=== PATIENT | male | born 1955 | race Caucasian/White ===

== ENCOUNTER 2017-06-07 15:36 | Emergency (ER) | payer BC ==
[2017-06-07] MEDS: KETOROLAC 15 MG INJ IM (17:17)
[2017-06-07 17:31] LABS: ADD MAN DIFF? NO
[2017-06-07 17:36] LABS: ABNORMAL IP MESSAGE 1; BASOPHILS % 0.3 % (0.0-2.0); EOSINOPHILS # 0.1 10^3/ul (0.0-0.5); EOSINOPHILS % 0.7 % (0.0-7.0); HEMATOCRIT 39.9 % (42.0-52.0); HEMOGLOBIN 13.8 g/dl (14.0-18.0); LYMPHOCYTES # 1.6 10^3/ul (0.8-2.9); LYMPHOCYTES % 12.7 % (15.0-51.0); MEAN CORPUSCULAR HEMOGLOBIN 30.2 pg (29.0-33.0); MEAN CORPUSCULAR HGB CONC 34.6 g/dl (32.0-37.0); MEAN CORPUSCULAR VOLUME 87.3 fl (82.0-101.0); MEAN PLATELET VOLUME 10.7 fl (7.4-10.4); MONOCYTE # 1.5 10^3/ul (0.3-0.9); MONOCYTES % 11.9 % (0.0-11.0); NEUTROPHIL # 9.6 10^3/ul (1.6-7.5); NEUTROPHILS % 73.9 % (39.0-77.0); PLATELET COUNT 261 10^3/UL (140-415); POSITIVE DIFF @See below; RED BLOOD COUNT 4.57 10^6/ul (4.70-6.10); RED CELL DISTRIBUTION WIDTH 12.7 % (11.5-14.5)
[2017-06-07 17:56] LABS: ALANINE AMINOTRANSFERASE 34 IU/L (13-69); ALBUMIN/GLOBULIN RATIO 1.33; ALKALINE PHOSPHATASE 71 IU/L (42-121); ANION GAP 14 (8-16); ASPARTATE AMINO TRANSFERASE 21 IU/L (15-46); BILIRUBIN,INDIRECT 0.3 mg/dl (0-1.1); BILIRUBIN,TOTAL 0.3 mg/dl (0.2-1.3); BLOOD UREA NITROGEN 17 mg/dl (7-20); CALCIUM 9.2 mg/dl (8.4-10.2); CARBON DIOXIDE 25 mmol/L (21-31); CHLORIDE 100 mmol/L (97-110); CHOL/HDL RATIO 2.3 RATIO; CHOLESTEROL 148 mg/dl (100-200); CREATININE 0.79 mg/dl (0.61-1.24); GLUCOSE 112 mg/dl (70-220); HDL CHOLESTEROL 62 mg/dl (30-78); LDL CHOLESTEROL,CALCULATED 74 mg/dl; POTASSIUM 4.2 mmol/L (3.5-5.1); SODIUM 135 mmol/L (135-144); TRIGLYCERIDES 62 mg/dl (0-149)
== END 2017-06-07 21:13 | disposition home or self-care (01) ==
LOC: FTE 21:13
DX: M19.041 Primary osteoarthritis, right hand (principal)
CPT/HCPCS: 36415; 73130-LT; 80053; 80061; 84560; 85025; 96372; 99284-25

== ENCOUNTER 2018-02-26 22:19 | Inpatient (IN) | payer BC ==
[2018-02-26] MEDS: SOD CHLORIDE 0.9% 1,000 ML IV (23:18)
[2018-02-26] MEDS: ONDANSETRON 4 MG INJ IV (23:20)
[2018-02-26] MEDS: morphine 4 MG/ML VIAL IV (23:20)
[2018-02-26 23:24] LABS: ADD MAN DIFF? NO
[2018-02-26 23:26] LABS: WHITE BLOOD COUNT 11.8 10^3/ul (4.8-10.8)
[2018-02-26 23:26] LABS: BASOPHIL # 0.1 10^3/ul (0.0-0.1); BASOPHILS % 0.4 % (0.0-2.0); EOSINOPHILS % 0.3 % (0.0-7.0); HEMATOCRIT 35.8 % (42.0-52.0); LYMPHOCYTES # 0.9 10^3/ul (0.8-2.9); MEAN CORPUSCULAR HEMOGLOBIN 29.8 pg (29.0-33.0); MEAN CORPUSCULAR HGB CONC 33.5 g/dl (32.0-37.0); MEAN CORPUSCULAR VOLUME 88.8 fl (82.0-101.0); MEAN PLATELET VOLUME 9.4 fl (7.4-10.4); MONOCYTE # 0.7 10^3/ul (0.3-0.9); MONOCYTES % 5.7 % (0.0-11.0); NEUTROPHILS % 84.3 % (39.0-77.0); PLATELET COUNT 545 10^3/UL (140-415); RED BLOOD COUNT 4.03 10^6/ul (4.70-6.10)
[2018-02-26 23:43] LABS: ALANINE AMINOTRANSFERASE 31 IU/L (13-69); ALBUMIN 3.7 g/dl (3.3-4.9); ALBUMIN/GLOBULIN RATIO 1.02; ALKALINE PHOSPHATASE 77 IU/L (42-121); AMYLASE 55 U/L (11-123); ANION GAP 14 (8-16); ASPARTATE AMINO TRANSFERASE 35 IU/L (15-46); BILIRUBIN,INDIRECT 0.4 mg/dl (0-1.1); BILIRUBIN,TOTAL 0.4 mg/dl (0.2-1.3); BLOOD UREA NITROGEN 21 mg/dl (7-20); CARBON DIOXIDE 29 mmol/L (21-31); CHLORIDE 97 mmol/L (97-110); CREATININE 0.87 mg/dl (0.61-1.24); GLUCOSE 115 mg/dl (70-220); LIPASE 75 U/L (23-300); POTASSIUM 4.5 mmol/L (3.5-5.1); SODIUM 135 mmol/L (135-144); TOTAL PROTEIN 7.3 g/dl (6.1-8.1)
[2018-02-26 23:44] LABS: LACTIC ACID 1.1 mmol/L (0.5-2.0)
[2018-02-27] MEDS: IOHEXOL 300MG/ML 150 ML BTL (01:10)
[2018-02-27] MEDS: SOD CHLORIDE 0.9% 100 ML (01:11)
[2018-02-27] MEDS: HYDROCODONE/APAP (5/325) TAB PO (01:39)
[2018-02-27 01:48] LABS: ADD UMIC NO; UR ASCORBIC ACID NEGATIVE (NEGATIVE); UR BILIRUBIN (Dip) NEGATIVE (NEGATIVE); UR BLOOD (Dip) NEGATIVE (NEGATIVE); UR CLARITY CLEAR (CLEAR); UR COLOR YELLOW (YELLOW); UR GLUCOSE (Dip) NEGATIVE (NEGATIVE); UR KETONES (Dip) NEGATIVE (NEGATIVE); UR LEUKOCYTE ESTERASE (Dip) NEGATIVE Leu/ul (NEGATIVE); UR NITRITE (Dip) NEGATIVE (NEGATIVE); UR SPECIFIC GRAVITY (Dip) 1.051 (1.003-1.030); UR TOTAL PROTEIN (Dip) NEGATIVE (NEGATIVE); UR UROBILINOGEN (Dip) 1+ mg/dL (NEGATIVE)
[2018-02-27] MEDS: ERTAPENEM SODIUM 1 GM in SOD CHLORIDE 0.9% 100 ML IVPB (03:25)
[2018-02-27] MEDS: SOD CHLORIDE 0.9% 1,000 ML IV ×3 (04:19→17:48)
[2018-02-27] MEDS ORDERED: ONDANSETRON 4 MG INJ IV (08:00)
[2018-02-27] MEDS ORDERED: MAGNESIUM HYDROXIDE 30ML CUP PO (08:00)
[2018-02-27] MEDS ORDERED: DOCUSATE SODIUM 100 MG CAP PO (08:00)
[2018-02-27] MEDS ORDERED: BISACODYL 10 MG SUPP PR (08:00)
[2018-02-27] MEDS ORDERED: NACL 0.9% 3 ML SYG IV (08:00)
[2018-02-27 10:12] LABS: INR 1.18; PROTIME 15.2 Sec (11.9-14.9); PT RATIO 1.2
[2018-02-27 10:13] LABS: PARTIAL THROMBOPLASTIN TIME 43.4 Sec (23.0-35.0)
[2018-02-27] MEDS: FAMOTIDINE 20 MG INJ IV ×2 (11:10→20:39)
[2018-02-27] MEDS: PIPER-TAZO 3.375 GM IV (PMX) 100 ML IVPB ×4 (11:10→23:31)
[2018-02-27 11:40] LABS: C-REACTIVE PROTEIN 7.7 mg/dl (0.0-0.9)
[2018-02-27 13:44] LABS: ERYTHROCYTE SEDIMENTATION RATE 50 mm/Hr (0-20)
[2018-02-27] MEDS ORDERED: VANCOMYCIN IV PER PHARMACY XX (14:30)
[2018-02-27] MEDS: ACETAMINOPHEN 325 MG TAB PO (16:29)
[2018-02-27] MEDS: VANCOMYCIN 1.5 GM in SOD CHLORIDE 0.9% 250 ML IVPB (20:39)
[2018-02-28] MEDS: morphine 2 MG INJ IV ×2 (01:33→06:26)
[2018-02-28] MEDS: SOD CHLORIDE 0.9% 1,000 ML IV ×2 (03:48→05:05)
[2018-02-28] MEDS ORDERED: VANCOMYCIN 1 GM 250 ML IVPB (05:00)
[2018-02-28] MEDS: PIPER-TAZO 3.375 GM IV (PMX) 100 ML IVPB ×4 (06:23→23:38)
[2018-02-28] MEDS: FAMOTIDINE 20 MG INJ IV ×2 (09:00→20:25)
[2018-02-28] MEDS: VANCOMYCIN 1 GM 250 ML IVPB ×2 (09:31→20:25)
[2018-02-28 10:03] LABS: ADD MAN DIFF? NO
[2018-02-28 10:05] LABS: BASOPHIL # 0.1 10^3/ul (0.0-0.1); BASOPHILS % 0.8 % (0.0-2.0); EOSINOPHILS # 0.1 10^3/ul (0.0-0.5); EOSINOPHILS % 0.9 % (0.0-7.0); HEMATOCRIT 34.1 % (42.0-52.0); HEMOGLOBIN 11.1 g/dl (14.0-18.0); LYMPHOCYTES % 15.2 % (15.0-51.0); MEAN CORPUSCULAR HEMOGLOBIN 29.2 pg (29.0-33.0); MEAN CORPUSCULAR HGB CONC 32.6 g/dl (32.0-37.0); MEAN CORPUSCULAR VOLUME 89.7 fl (82.0-101.0); MEAN PLATELET VOLUME 9.2 fl (7.4-10.4); MONOCYTE # 0.7 10^3/ul (0.3-0.9); MONOCYTES % 10.4 % (0.0-11.0); NEUTROPHIL # 4.6 10^3/ul (1.6-7.5); NEUTROPHILS % 71.9 % (39.0-77.0); PLATELET COUNT 461 10^3/UL (140-415); RED CELL DISTRIBUTION WIDTH 12.9 % (11.5-14.5)
[2018-02-28 10:05] LABS: WHITE BLOOD COUNT 6.4 10^3/ul (4.8-10.8)
[2018-02-28 10:51] LABS: ALANINE AMINOTRANSFERASE 21 IU/L (13-69); ALBUMIN 2.8 g/dl (3.3-4.9); ALBUMIN/GLOBULIN RATIO 0.93; ALKALINE PHOSPHATASE 58 IU/L (42-121); ANION GAP 8 (8-16); ASPARTATE AMINO TRANSFERASE 25 IU/L (15-46); BILIRUBIN,INDIRECT 0.2 mg/dl (0-1.1); BILIRUBIN,TOTAL 0.2 mg/dl (0.2-1.3); BLOOD UREA NITROGEN 12 mg/dl (7-20); CALCIUM 8.4 mg/dl (8.4-10.2); CARBON DIOXIDE 30 mmol/L (21-31); CHLORIDE 108 mmol/L (97-110); CHOL/HDL RATIO 4.3 RATIO; CHOLESTEROL 100 mg/dl (100-200); CREATININE 0.71 mg/dl (0.61-1.24); GLUCOSE 98 mg/dl (70-220); HDL CHOLESTEROL 23 mg/dl (30-78); LDL CHOLESTEROL,CALCULATED 61 mg/dl; MAGNESIUM 2.1 mg/dl (1.7-2.5); PHOSPHORUS 3.7 mg/dl (2.5-4.9); POTASSIUM 4.5 mmol/L (3.5-5.1); SODIUM 141 mmol/L (135-144); TOTAL PROTEIN 5.8 g/dl (6.1-8.1); TRIGLYCERIDES 78 mg/dl (0-149)
[2018-02-28] MEDS ORDERED: traMADol 50 MG TAB PO (13:30)
[2018-03-01] MEDS: PIPER-TAZO 3.375 GM IV (PMX) 100 ML IVPB ×2 (06:02→14:51)
[2018-03-01 07:51] LABS: ADD MAN DIFF? NO
[2018-03-01 07:53] LABS: WHITE BLOOD COUNT 7.5 10^3/ul (4.8-10.8)
[2018-03-01 07:53] LABS: BASOPHIL # 0.1 10^3/ul (0.0-0.1); BASOPHILS % 0.7 % (0.0-2.0); EOSINOPHILS # 0.1 10^3/ul (0.0-0.5); EOSINOPHILS % 0.9 % (0.0-7.0); HEMATOCRIT 35.1 % (42.0-52.0); HEMOGLOBIN 11.6 g/dl (14.0-18.0); LYMPHOCYTES # 1.3 10^3/ul (0.8-2.9); LYMPHOCYTES % 16.9 % (15.0-51.0); MEAN CORPUSCULAR HEMOGLOBIN 29.4 pg (29.0-33.0); MEAN CORPUSCULAR VOLUME 89.1 fl (82.0-101.0); MEAN PLATELET VOLUME 9.5 fl (7.4-10.4); MONOCYTE # 0.6 10^3/ul (0.3-0.9); MONOCYTES % 8.4 % (0.0-11.0); NEUTROPHIL # 5.4 10^3/ul (1.6-7.5); NEUTROPHILS % 72.3 % (39.0-77.0); PLATELET COUNT 485 10^3/UL (140-415); RED BLOOD COUNT 3.94 10^6/ul (4.70-6.10); RED CELL DISTRIBUTION WIDTH 12.8 % (11.5-14.5)
[2018-03-01 08:15] LABS: PHOSPHORUS 4.2 mg/dl (2.5-4.9)
[2018-03-01 08:15] LABS: MAGNESIUM 2.1 mg/dl (1.7-2.5)
[2018-03-01 08:16] LABS: ANION GAP 10 (8-16); BLOOD UREA NITROGEN 9 mg/dl (7-20); CALCIUM 8.7 mg/dl (8.4-10.2); CARBON DIOXIDE 28 mmol/L (21-31); GLUCOSE 93 mg/dl (70-220); POTASSIUM 4.5 mmol/L (3.5-5.1); SODIUM 142 mmol/L (135-144)
[2018-03-01 08:18] LABS: CHLORIDE 109 mmol/L (97-110)
[2018-03-01 08:20] LABS: VANCOMYCIN,TROUGH 10.7 ug/ml (10.0-20.0)
[2018-03-01] MEDS: FAMOTIDINE 20 MG INJ IV ×2 (09:34→20:56)
[2018-03-01] MEDS: VANCOMYCIN 1 GM 250 ML IVPB (09:34)
[2018-03-01] MEDS: CEFTRIAXONE 1 GM/50 ML (PMX) 50 ML IVPB (16:17)
[2018-03-01] MEDS: VANCOMYCIN 1.25 GM in SOD CHLORIDE 0.9% 250 ML IVPB (20:56)
[2018-03-02] MEDS: FAMOTIDINE 20 MG INJ IV ×2 (08:55→20:34)
[2018-03-02] MEDS: VANCOMYCIN 1.25 GM in SOD CHLORIDE 0.9% 250 ML IVPB (08:55)
[2018-03-02] MEDS: ACETAMINOPHEN 325 MG TAB PO (08:55)
[2018-03-02] MEDS ORDERED: LIDOCAINE 1% (MPF) 5 ML VIAL SC (10:00)
[2018-03-02 12:23] LABS: ANA SCREEN NEGATIVE (NEGATIVE)
[2018-03-02] MEDS: CEFTRIAXONE 1 GM/50 ML (PMX) 50 ML IVPB (17:03)
[2018-03-03 05:57] LABS: ADD MAN DIFF? NO
[2018-03-03 05:59] LABS: BASOPHIL # 0.1 10^3/ul (0.0-0.1); BASOPHILS % 0.7 % (0.0-2.0); EOSINOPHILS # 0.1 10^3/ul (0.0-0.5); EOSINOPHILS % 0.6 % (0.0-7.0); HEMATOCRIT 33.4 % (42.0-52.0); LYMPHOCYTES # 1.6 10^3/ul (0.8-2.9); LYMPHOCYTES % 19.6 % (15.0-51.0); MEAN CORPUSCULAR HEMOGLOBIN 29.5 pg (29.0-33.0); MEAN CORPUSCULAR HGB CONC 32.9 g/dl (32.0-37.0); MEAN CORPUSCULAR VOLUME 89.5 fl (82.0-101.0); MEAN PLATELET VOLUME 9.6 fl (7.4-10.4); MONOCYTE # 0.6 10^3/ul (0.3-0.9); MONOCYTES % 7.3 % (0.0-11.0); NEUTROPHILS % 71.2 % (39.0-77.0); PLATELET COUNT 504 10^3/UL (140-415); RED BLOOD COUNT 3.73 10^6/ul (4.70-6.10); RED CELL DISTRIBUTION WIDTH 12.9 % (11.5-14.5)
[2018-03-03 05:59] LABS: WHITE BLOOD COUNT 8.4 10^3/ul (4.8-10.8)
[2018-03-03 06:30] LABS: ANION GAP 9 (8-16); BLOOD UREA NITROGEN 13 mg/dl (7-20); CALCIUM 8.7 mg/dl (8.4-10.2); CARBON DIOXIDE 27 mmol/L (21-31); CHLORIDE 110 mmol/L (97-110); CREATININE 0.81 mg/dl (0.61-1.24); GLUCOSE 94 mg/dl (70-220); SODIUM 142 mmol/L (135-144)
[2018-03-03] MEDS: FAMOTIDINE 20 MG INJ IV (08:51)
[2018-03-03] MEDS: CEFTRIAXONE 1 GM/50 ML (PMX) 50 ML IVPB (11:30)
== END 2018-03-03 13:50 | DRG 289 ==
LOC: FTE 22:19 → 2NE 02-27 06:36
PROC: 02HV33Z Insertion of Infusion Device into Superior Vena Cava, Percutaneous Approach (ICD-10-PCS; principal; 2018-03-02)
PROC: B548ZZA Ultrasonography of Superior Vena Cava, Guidance (ICD-10-PCS; 2018-03-02)
DX: I33.0 Acute and subacute infective endocarditis (principal); K35.80 Unspecified acute appendicitis; R78.81 Bacteremia; B95.4 Other streptococcus as the cause of diseases classified elsewhere; M48.02 Spinal stenosis, cervical region; M48.061 Spinal stenosis, lumbar region without neurogenic claudication
CPT/HCPCS: 36569; 71045; 72141; 72142; 72146; 72148; 72149; 72190; 74177; 76937; 80048; 80053; 80061; 80202; 81003; 82150; 83605; 83690; 83735; 84100; 85025; 85610; 85651; 85730; 86038; 86140; 87040; 90686; 93005; 93306; 96361; 96374; 99285-25

== ENCOUNTER 2018-04-18 21:05 | Inpatient (IN) | payer BC ==
[2018-04-18 22:18] LABS: ADD MAN DIFF? NO
[2018-04-18 22:20] LABS: WHITE BLOOD COUNT 12.7 10^3/ul (4.8-10.8)
[2018-04-18 22:20] LABS: BASOPHILS % 0.3 % (0.0-2.0); EOSINOPHILS % 0.1 % (0.0-7.0); HEMATOCRIT 37.7 % (42.0-52.0); HEMOGLOBIN 12.7 g/dl (14.0-18.0); LYMPHOCYTES # 0.7 10^3/ul (0.8-2.9); LYMPHOCYTES % 5.6 % (15.0-51.0); MEAN CORPUSCULAR HEMOGLOBIN 29.9 pg (29.0-33.0); MEAN CORPUSCULAR HGB CONC 33.7 g/dl (32.0-37.0); MEAN CORPUSCULAR VOLUME 88.7 fl (82.0-101.0); MEAN PLATELET VOLUME 9.9 fl (7.4-10.4); MONOCYTE # 0.7 10^3/ul (0.3-0.9); MONOCYTES % 5.6 % (0.0-11.0); NEUTROPHIL # 11.1 10^3/ul (1.6-7.5); PLATELET COUNT 196 10^3/UL (140-415); RED BLOOD COUNT 4.25 10^6/ul (4.70-6.10)
[2018-04-18] MEDS: SODIUM CHLORIDE 0.9% 1L BAG IV* (22:28)
[2018-04-18 22:37] LABS: ANION GAP 9 (5-13); BLOOD UREA NITROGEN 18 mg/dl (7-20); CALCIUM 8.6 mg/dl (8.4-10.2); CARBON DIOXIDE 26 mmol/L (21-31); CHLORIDE 98 mmol/L (97-110); CREATININE 0.77 mg/dl (0.61-1.24); Estimated GFR > 60 mL/min (>60); GLUCOSE 125 mg/dl (70-220); POTASSIUM 3.9 mmol/L (3.5-5.1); SODIUM 133 mmol/L (135-144)
[2018-04-18 22:39] LABS: INR 1.05; PROTIME 13.8 Sec (11.9-14.9); PT RATIO 1.1
[2018-04-18 22:40] LABS: PARTIAL THROMBOPLASTIN TIME 33.6 Sec (23.0-35.0)
[2018-04-18 22:48] LABS: TROPONIN-I < 0.012 ng/ml (0.000-0.120)
[2018-04-18] MEDS ORDERED: DOCUSATE SODIUM 100 MG CAP PO (23:30)
[2018-04-18] MEDS ORDERED: ONDANSETRON 4 MG INJ IV (23:30)
[2018-04-18] MEDS ORDERED: MAGNESIUM HYDROXIDE 30ML CUP PO (23:30)
[2018-04-18] MEDS ORDERED: NACL 0.9% 3 ML SYG IV (23:30)
[2018-04-18] MEDS ORDERED: BISACODYL 10 MG SUPP PR (23:30)
[2018-04-18] MEDS ORDERED: HYDROCODONE/APAP (5/325) TAB PO ×2 (23:30)
[2018-04-18] MEDS: CEFTRIAXONE 1 GM/50 ML (PMX) 50 ML IVPB (23:45)
[2018-04-19 00:13] LABS: ADD UMIC YES; UR ASCORBIC ACID NEGATIVE (NEGATIVE); UR BACTERIA FEW /HPF (NONE SEEN); UR BILIRUBIN (Dip) NEGATIVE (NEGATIVE); UR BLOOD (Dip) NEGATIVE (NEGATIVE); UR CLARITY SLIGHTLY CLOUDY (CLEAR); UR COLOR YELLOW (YELLOW); UR GLUCOSE (Dip) NEGATIVE (NEGATIVE); UR KETONES (Dip) TRACE mg/dL (NEGATIVE); UR LEUKOCYTE ESTERASE (Dip) NEGATIVE Leu/ul (NEGATIVE); UR MUCUS MANY /HPF (NONE SEEN); UR NITRITE (Dip) NEGATIVE (NEGATIVE); UR RBC 2 /HPF (0-5); UR SPECIFIC GRAVITY (Dip) 1.021 (1.003-1.030); UR TOTAL PROTEIN (Dip) 1+ mg/dl (NEGATIVE); UR UROBILINOGEN (Dip) NEGATIVE (NEGATIVE); UR WBC 4 /HPF (0-5)
[2018-04-19] MEDS: ACETAMINOPHEN 325 MG TAB PO ×2 (01:03→11:49)
[2018-04-19] MEDS: SOD CHLORIDE 0.9% 1,000 ML IV (01:03)
[2018-04-19] MEDS: VANCOMYCIN 1.25 GM in SOD CHLORIDE 0.9% 250 ML IVPB ×2 (01:38→16:43)
[2018-04-19 02:14] LABS: LACTIC ACID 0.6 mmol/L (0.5-2.0)
[2018-04-19 05:33] LABS: ADD MAN DIFF? NO
[2018-04-19 05:43] LABS: WHITE BLOOD COUNT 10.7 10^3/ul (4.8-10.8)
[2018-04-19 05:43] LABS: BASOPHIL # 0.1 10^3/ul (0.0-0.1); BASOPHILS % 0.5 % (0.0-2.0); EOSINOPHILS % 0.1 % (0.0-7.0); HEMATOCRIT 36.7 % (42.0-52.0); HEMOGLOBIN 12.2 g/dl (14.0-18.0); LYMPHOCYTES # 0.9 10^3/ul (0.8-2.9); LYMPHOCYTES % 7.9 % (15.0-51.0); MEAN CORPUSCULAR HEMOGLOBIN 29.7 pg (29.0-33.0); MEAN CORPUSCULAR HGB CONC 33.2 g/dl (32.0-37.0); MEAN CORPUSCULAR VOLUME 89.3 fl (82.0-101.0); MEAN PLATELET VOLUME 10.7 fl (7.4-10.4); MONOCYTE # 0.9 10^3/ul (0.3-0.9); MONOCYTES % 7.9 % (0.0-11.0); NEUTROPHIL # 8.9 10^3/ul (1.6-7.5); NEUTROPHILS % 83.1 % (39.0-77.0); PLATELET COUNT 188 10^3/UL (140-415); RED BLOOD COUNT 4.11 10^6/ul (4.70-6.10); RED CELL DISTRIBUTION WIDTH 14.1 % (11.5-14.5)
[2018-04-19 06:35] LABS: ALANINE AMINOTRANSFERASE 37 IU/L (13-69); ALBUMIN 3.4 g/dl (3.3-4.9); ALBUMIN/GLOBULIN RATIO 1.41; ALKALINE PHOSPHATASE 56 IU/L (42-121); ANION GAP 8 (5-13); ASPARTATE AMINO TRANSFERASE 33 IU/L (15-46); BILIRUBIN,INDIRECT 0.4 mg/dl (0-1.1); BILIRUBIN,TOTAL 0.4 mg/dl (0.2-1.3); BLOOD UREA NITROGEN 13 mg/dl (7-20); CALCIUM 8.3 mg/dl (8.4-10.2); CARBON DIOXIDE 24 mmol/L (21-31); CHLORIDE 103 mmol/L (97-110); CREATININE 0.76 mg/dl (0.61-1.24); Estimated GFR > 60 mL/min (>60); GLUCOSE 144 mg/dl (70-220); MAGNESIUM 1.8 mg/dl (1.7-2.5); PHOSPHORUS 3.3 mg/dl (2.5-4.9); POTASSIUM 3.8 mmol/L (3.5-5.1); SODIUM 135 mmol/L (135-144); TOTAL PROTEIN 5.8 g/dl (6.1-8.1)
[2018-04-19] MEDS: FAMOTIDINE 20 MG TAB PO ×3 (08:28→20:55)
[2018-04-19] MEDS: ENOXAPARIN 40 MG/0.4 ML SYG SC (08:34)
[2018-04-19] MEDS: LACTOBACILLUS RHAMNOSUS CAP PO ×2 (09:00→22:12)
[2018-04-19] MEDS: CEFTRIAXONE 1 GM/50 ML (PMX) 50 ML IVPB (23:25)
[2018-04-20] MEDS: ACETAMINOPHEN 325 MG TAB PO (00:44)
[2018-04-20] MEDS ORDERED: VANCOMYCIN IV PER PHARMACY XX (01:00)
[2018-04-20] MEDS: VANCOMYCIN 1.25 GM in SOD CHLORIDE 0.9% 250 ML IVPB ×2 (01:41→14:54)
[2018-04-20] MEDS: FAMOTIDINE 20 MG TAB PO ×2 (09:50→20:06)
[2018-04-20] MEDS: LACTOBACILLUS RHAMNOSUS CAP PO ×2 (09:51→20:06)
[2018-04-20] MEDS: ENOXAPARIN 40 MG/0.4 ML SYG SC (10:03)
[2018-04-21] MEDS: CEFTRIAXONE 1 GM/50 ML (PMX) 50 ML IVPB ×2 (00:05→23:22)
[2018-04-21] MEDS: VANCOMYCIN 1.5 GM in SOD CHLORIDE 0.9% 250 ML IVPB ×2 (01:39→13:52)
[2018-04-21 05:45] LABS: ADD MAN DIFF? NO
[2018-04-21 05:51] LABS: WHITE BLOOD COUNT 7.6 10^3/ul (4.8-10.8)
[2018-04-21 05:51] LABS: BASOPHILS % 0.4 % (0.0-2.0); EOSINOPHILS # 0.2 10^3/ul (0.0-0.5); EOSINOPHILS % 2.4 % (0.0-7.0); HEMATOCRIT 37.2 % (42.0-52.0); HEMOGLOBIN 12.4 g/dl (14.0-18.0); LYMPHOCYTES # 1.1 10^3/ul (0.8-2.9); MEAN CORPUSCULAR HEMOGLOBIN 29.2 pg (29.0-33.0); MEAN CORPUSCULAR HGB CONC 33.3 g/dl (32.0-37.0); MEAN CORPUSCULAR VOLUME 87.5 fl (82.0-101.0); MEAN PLATELET VOLUME 10.7 fl (7.4-10.4); MONOCYTE # 0.9 10^3/ul (0.3-0.9); MONOCYTES % 12.2 % (0.0-11.0); NEUTROPHIL # 5.4 10^3/ul (1.6-7.5); NEUTROPHILS % 70.5 % (39.0-77.0); PLATELET COUNT 205 10^3/UL (140-415); RED BLOOD COUNT 4.25 10^6/ul (4.70-6.10); RED CELL DISTRIBUTION WIDTH 13.8 % (11.5-14.5)
[2018-04-21 06:17] LABS: ANION GAP 9 (5-13); BLOOD UREA NITROGEN 14 mg/dl (7-20); CALCIUM 8.4 mg/dl (8.4-10.2); CARBON DIOXIDE 25 mmol/L (21-31); CHLORIDE 105 mmol/L (97-110); CREATININE 0.76 mg/dl (0.61-1.24); Estimated GFR > 60 mL/min (>60); GLUCOSE 103 mg/dl (70-220); POTASSIUM 3.7 mmol/L (3.5-5.1); SODIUM 139 mmol/L (135-144)
[2018-04-21] MEDS: FAMOTIDINE 20 MG TAB PO ×2 (08:10→21:03)
[2018-04-21] MEDS: LACTOBACILLUS RHAMNOSUS CAP PO ×2 (08:10→21:03)
[2018-04-21] MEDS: ENOXAPARIN 40 MG/0.4 ML SYG SC (08:35)
[2018-04-21 16:48] LABS: HIV 1&2 ANTIBODY NEGATIVE (NEGATIVE)
[2018-04-22] MEDS: VANCOMYCIN 1.5 GM in SOD CHLORIDE 0.9% 250 ML IVPB ×2 (02:04→15:25)
[2018-04-22 05:47] LABS: ADD MAN DIFF? NO
[2018-04-22 05:55] LABS: BASOPHIL # 0.1 10^3/ul (0.0-0.1); BASOPHILS % 0.7 % (0.0-2.0); EOSINOPHILS # 0.3 10^3/ul (0.0-0.5); EOSINOPHILS % 3.7 % (0.0-7.0); HEMATOCRIT 37.8 % (42.0-52.0); HEMOGLOBIN 12.7 g/dl (14.0-18.0); LYMPHOCYTES # 1.6 10^3/ul (0.8-2.9); LYMPHOCYTES % 21.3 % (15.0-51.0); MEAN CORPUSCULAR HEMOGLOBIN 29.7 pg (29.0-33.0); MEAN CORPUSCULAR HGB CONC 33.6 g/dl (32.0-37.0); MEAN CORPUSCULAR VOLUME 88.5 fl (82.0-101.0); MEAN PLATELET VOLUME 10.1 fl (7.4-10.4); MONOCYTE # 0.9 10^3/ul (0.3-0.9); MONOCYTES % 12.1 % (0.0-11.0); NEUTROPHIL # 4.6 10^3/ul (1.6-7.5); NEUTROPHILS % 61.5 % (39.0-77.0); PLATELET COUNT 221 10^3/UL (140-415); RED BLOOD COUNT 4.27 10^6/ul (4.70-6.10); RED CELL DISTRIBUTION WIDTH 13.6 % (11.5-14.5)
[2018-04-22 05:55] LABS: WHITE BLOOD COUNT 7.5 10^3/ul (4.8-10.8)
[2018-04-22 06:14] LABS: ANION GAP 12 (5-13); BLOOD UREA NITROGEN 15 mg/dl (7-20); CALCIUM 8.6 mg/dl (8.4-10.2); CARBON DIOXIDE 25 mmol/L (21-31); CHLORIDE 105 mmol/L (97-110); CREATININE 0.71 mg/dl (0.61-1.24); Estimated GFR > 60 mL/min (>60); GLUCOSE 103 mg/dl (70-220); POTASSIUM 3.8 mmol/L (3.5-5.1); SODIUM 142 mmol/L (135-144)
[2018-04-22] MEDS: FAMOTIDINE 20 MG TAB PO ×2 (08:08→21:14)
[2018-04-22] MEDS: LACTOBACILLUS RHAMNOSUS CAP PO ×2 (08:09→21:14)
[2018-04-22] MEDS: ENOXAPARIN 40 MG/0.4 ML SYG SC (08:10)
[2018-04-22] MEDS: LIDOCAINE 1% (MPF) 5 ML VIAL SC (13:25)
[2018-04-22] MEDS: SOD CHLORIDE 0.9% 100 ML (13:45)
[2018-04-22] MEDS: MEROPENEM 1 GM/50ML(PMX) 50 ML IVPB ×2 (14:54→23:04)
[2018-04-22] MEDS ORDERED: DIPHENHYDRAMINE 25 MG CAP PO (19:00)
[2018-04-22] MEDS: DIPHENHYDRAMINE 25 MG CAP PO (19:00)
[2018-04-23] MEDS: VANCOMYCIN 1.5 GM in SOD CHLORIDE 0.9% 250 ML IVPB ×2 (02:03→14:36)
[2018-04-23] MEDS: FAMOTIDINE 20 MG TAB PO ×2 (08:39→21:04)
[2018-04-23] MEDS: ENOXAPARIN 40 MG/0.4 ML SYG SC (09:31)
[2018-04-23] MEDS: LACTOBACILLUS RHAMNOSUS CAP PO ×2 (09:32→21:04)
[2018-04-23] MEDS: MEROPENEM 1 GM/50ML(PMX) 50 ML IVPB ×2 (09:33→21:04)
[2018-04-24] MEDS: VANCOMYCIN 1.5 GM in SOD CHLORIDE 0.9% 250 ML IVPB ×2 (03:32→14:13)
[2018-04-24 06:26] LABS: ADD MAN DIFF? NO
[2018-04-24 06:32] LABS: BASOPHIL # 0.1 10^3/ul (0.0-0.1); BASOPHILS % 0.8 % (0.0-2.0); EOSINOPHILS # 0.4 10^3/ul (0.0-0.5); EOSINOPHILS % 3.9 % (0.0-7.0); HEMATOCRIT 37.2 % (42.0-52.0); HEMOGLOBIN 12.4 g/dl (14.0-18.0); LYMPHOCYTES # 1.9 10^3/ul (0.8-2.9); LYMPHOCYTES % 17.5 % (15.0-51.0); MEAN CORPUSCULAR HEMOGLOBIN 29.6 pg (29.0-33.0); MEAN CORPUSCULAR HGB CONC 33.3 g/dl (32.0-37.0); MEAN CORPUSCULAR VOLUME 88.8 fl (82.0-101.0); MEAN PLATELET VOLUME 10.4 fl (7.4-10.4); MONOCYTES % 9.5 % (0.0-11.0); NEUTROPHILS % 65.9 % (39.0-77.0); PLATELET COUNT 257 10^3/UL (140-415); RED BLOOD COUNT 4.19 10^6/ul (4.70-6.10); RED CELL DISTRIBUTION WIDTH 13.7 % (11.5-14.5)
[2018-04-24 06:32] LABS: WHITE BLOOD COUNT 10.7 10^3/ul (4.8-10.8)
[2018-04-24 07:06] LABS: ANION GAP 7 (5-13); BLOOD UREA NITROGEN 16 mg/dl (7-20); CALCIUM 8.8 mg/dl (8.4-10.2); CARBON DIOXIDE 29 mmol/L (21-31); CHLORIDE 104 mmol/L (97-110); CREATININE 0.73 mg/dl (0.61-1.24); Estimated GFR > 60 mL/min (>60); GLUCOSE 96 mg/dl (70-220); POTASSIUM 4.4 mmol/L (3.5-5.1); SODIUM 140 mmol/L (135-144)
[2018-04-24] MEDS: LACTOBACILLUS RHAMNOSUS CAP PO ×2 (08:46→21:08)
[2018-04-24] MEDS: MEROPENEM 1 GM/50ML(PMX) 50 ML IVPB ×2 (08:46→21:15)
[2018-04-24] MEDS: FAMOTIDINE 20 MG TAB PO ×2 (08:46→21:08)
[2018-04-24] MEDS: ENOXAPARIN 40 MG/0.4 ML SYG SC (09:07)
[2018-04-25] MEDS: VANCOMYCIN 1.5 GM in SOD CHLORIDE 0.9% 250 ML IVPB ×2 (02:01→13:12)
[2018-04-25] MEDS: MEROPENEM 1 GM/50ML(PMX) 50 ML IVPB ×2 (08:23→22:04)
[2018-04-25] MEDS: FAMOTIDINE 20 MG TAB PO ×2 (08:23→22:03)
[2018-04-25] MEDS: LACTOBACILLUS RHAMNOSUS CAP PO ×2 (08:23→22:03)
[2018-04-25] MEDS: ENOXAPARIN 40 MG/0.4 ML SYG SC (08:30)
[2018-04-26 01:21] LABS: VANCOMYCIN,TROUGH 20.1 ug/ml (10.0-20.0)
[2018-04-26 07:30] LABS: BLOOD UREA NITROGEN 16 mg/dl (7-20)
[2018-04-26 07:30] LABS: CREATININE 0.76 mg/dl (0.61-1.24)
[2018-04-26] MEDS: FAMOTIDINE 20 MG TAB PO ×2 (08:41→21:21)
[2018-04-26] MEDS: LACTOBACILLUS RHAMNOSUS CAP PO ×2 (08:41→21:20)
[2018-04-26] MEDS: MEROPENEM 1 GM/50ML(PMX) 50 ML IVPB ×2 (08:44→21:20)
[2018-04-26] MEDS: ENOXAPARIN 40 MG/0.4 ML SYG SC (09:04)
[2018-04-26] MEDS ORDERED: VANCOMYCIN 1.25 GM in SOD CHLORIDE 0.9% 250 ML IVPB (10:00)
[2018-04-27] MEDS: MEROPENEM 1 GM/50ML(PMX) 50 ML IVPB ×2 (09:50→18:00)
[2018-04-27] MEDS: FAMOTIDINE 20 MG TAB PO (09:50)
[2018-04-27] MEDS: LACTOBACILLUS RHAMNOSUS CAP PO (09:50)
[2018-04-27] MEDS: ENOXAPARIN 40 MG/0.4 ML SYG SC (09:58)
== END 2018-04-27 19:25 | disposition home health service (06) | DRG 314 ==
LOC: 6WM 23:15 → TEL 04-23 03:42 → E/R 21:05
PROC: 02HV33Z Insertion of Infusion Device into Superior Vena Cava, Percutaneous Approach (ICD-10-PCS; principal; 2018-04-22)
PROC: 02PAX3Z Removal of Infusion Device from Heart, External Approach (ICD-10-PCS; 2018-04-22)
DX: T82.7XXA Infection and inflammatory reaction due to other cardiac and vascular devices, implants and grafts, initial encounter (principal); A41.59 Other Gram-negative sepsis; A40.8 Other streptococcal sepsis; I33.0 Acute and subacute infective endocarditis; L03.114 Cellulitis of left upper limb; I34.0 Nonrheumatic mitral (valve) insufficiency
CPT/HCPCS: 36569; 71045; 76705; 76937; 78806; 80048; 80053; 80202; 81001; 82565; 83605; 83735; 84100; 84484; 84520; 85025; 85610; 85730; 86703; 87040; 87045; 87070; 87086; 93005; 93306; 93971; G0378